=== PATIENT | female | born 1955 | race Caucasian/White ===

== ENCOUNTER 2023-11-29 12:02 | Inpatient (IN) ==
[2023-11-29] MEDS ORDERED: Atropine 0.1 MG/ML 10 ml SYR (1 mg) ONE ×2 (12:10→12:34)
[2023-11-29] MEDS: Atropine 1 MG/ML INJ 1 ML VIAL IV PUSH ONE ×2 (12:14→12:43)
[2023-11-29 12:40] LABS: ABS Eosinophils 0.2 10^3/uL (0.0-0.5); ABS Lymphocytes 1.1 10^3/uL (1.0-4.8); ABS Monocytes 0.6 10^3/uL (0.0-0.9); ABS Neutrophils 4.5 10^3/uL (1.5-7.6); Eosinophil % 3.7 %; Hematocrit 33.5 % (35-45); Mean Corpuscular Hemoglobin 29.6 pg (27-33); Mean Corpuscular Hgb Conc 32.8 g/dL (31-36); Mean Corpuscular Volume 90.3 fL (80-97); Platelet Count 128 10^3/uL (150-450); Red Blood Count 3.71 10^6/uL (3.63-4.92); Red Cell Distribution Width 17.3 % (12-17); White Blood Count 6.5 10^3/uL (3.8-11.8)
[2023-11-29] MEDS: Lactated Ringers 1000 ml BAG 1,000 ML IV ONE (12:47)
[2023-11-29 12:50] LABS: INR 1.74 (0.83-1.13)
[2023-11-29] MEDS: Iodixanol (CONTRAST) 320 MG/ML 100 ML SDV IV ONE (12:52)
[2023-11-29 13:33] LABS: Albumin 2.9 g/dL (3.2-5.2); Calcium 8.8 mg/dL (8.6-10.3); Creatinine, Serum 2.02 mg/dL (0.51-0.95); Globulin 2.8 g/dL (2-4); Magnesium 2.3 mg/dL (1.9-2.7); Potassium 3.7 mmol/L (3.5-5.0); Total Bilirubin 0.4 mg/dL (0.2-1.0); Total Protein 5.7 g/dL (6.4-8.9); eGFR CKD-EPI 26.4 (>60)
[2023-11-29] MEDS: Magnesium Sulfate 2 gm BAG 2 GM/50 ML BAG IVPB ONE (13:35)
[2023-11-29] MEDS ORDERED: Norepinephrine 4 MG/250mL D5W 4,000 MCG/250 ML BAG IV ONE (13:37)
[2023-11-29] MEDS: Norepinephrine 4 MG/250mL D5W 4,000 MCG/250 ML BAG IV SCH (13:40)
[2023-11-29] MEDS: Piperacillin/Tazobac 3.375 BAG 3.375 GM/100 ML BAG IV ONE (13:42)
[2023-11-29] MEDS: CALCIUM GLUCONATE 1GM/50ML NS 1 GM/50 ML BAG IV ONE (13:43)
[2023-11-29 13:48] LABS: TSH Ultra Thyroid Stim Horm 1.17 mcIU/mL (0.34-5.60)
[2023-11-29 13:49] LABS: Venous Bicarbonate HCO3 24.9 mmol/L (24-28)
[2023-11-29] MEDS ORDERED: Rocuronium 50 mg VIAL 10 mg/ml 5 ml VIAL (50 mg) ONE (13:49)
[2023-11-29] MEDS ORDERED: Succinylcholine 200 mg VIAL 20 mg/ml 10 ml VIAL (200 mg) ONE (13:49)
[2023-11-29] MEDS ORDERED: Acetaminophen IV 1 GM/100ML 1,000 MG/100 ML BAG IV ONE (14:02)
[2023-11-29] MEDS: Acetaminophen IV 1 GM/100ML 1,000 MG/100 ML BAG IV ONE (14:03)
[2023-11-29] MEDS: EPINEPHrine 1 MG/ML MDV 5 MG in D5W 250 ml BAG 245 ML IV SCH (14:20)
[2023-11-29 14:36] LABS: Osmolality Serum 298 mOsm/kg (275-295)
[2023-11-29] MEDS ORDERED: Zosyn per Pharmacy NOTE FOLLOW UP SCH ×2 (15:00)
[2023-11-29] MEDS: ZOSYN 3.375 GM Q8H per EXTENDED INFUSION IV SCH ×2 (17:38→17:42)
[2023-11-29 18:11] VITALS: BP 87/70
[2023-11-29] MEDS: Morphine 2 MG/ML SYRINGE IV PRN (19:31)
[2023-11-29] MEDS: Atropine 1% (ORAL/SL) 15 ML BTL SL PRN (19:42)
[2023-12-01] MEDS ORDERED: Ondansetron 4 mg VIAL 2 MG/ML 2 ml VIAL IV PRN (09:38)
[2023-12-01] MEDS: Scopolamine 1 mg/72hr PATCH TRANSDERM SCH (10:23)
[2023-12-04] MEDS: Morphine 2 MG/ML SYRINGE IV PRN (01:33)
[2023-12-04] MEDS: diazePAM INJ CARPUJECT 5 MG/ML SYRINGE IV PRN (15:08)
== END 2023-12-06 04:08 | disposition expired | DRG 871 ==
LOC: ED 12:02 → SUATTDRO 14:06 → EDHOLD 14:06 → ICU 14:40 → MED 11-30 11:18
PROVIDERS: ADMIT Student in an Organized Health Care Education/Training Program; ATTEND Hospitalist